=== PATIENT | female | born 1935 | race African-American/Black ===

== ENCOUNTER 2016-07-18 16:27 | Inpatient (IN) | payer MEDICARE, BC ==
--- NOTE | ~2016-07-18 | CT4 ---
[facility] A Service of [facility] RADIOLOGY TEXT RESULTS PATIENT: LALO TIJERINA LOCATION: C3A 330-01 : 35 UNIT #: [id number] AGE: [address]: Nolvia Ramirez MD SEX: F ORDER DR: [id number] [address] [address] [id number] MR#: [id number] Acc #: [id number] NAME: LALO TIJERINA : 1935 SEX: F STUDY DATE/TIME: 07/18/2016 17:14 UNIT: SED ROOM: STUDY DESCRIPTION: CT Abd and Pelv Wo Cont Attending Physician: Eleno Ramirez M.D. Ordering Physician: Eleno Ramirez M.D. Primary Care Physician: Jaylon Lewis M.D. MEDICAL IMAGING REPORT This report is preliminary unless electronic signature is present. EXAM CT abdomen and pelvis without IV contrast COMPARISON None INDICATIONS 81-year-old female with diffuse abdominal pain for 3 days. Recent colonoscopy. Patient also reports weakness, nausea and emesis since yesterday. FINDINGS Axial CT imaging of the abdomen and pelvis was performed without IV contrast. Lack of IV contrast limits evaluation of adenopathy, vasculature and viscera. This CT exam was performed with one or more of the following radiation dose reduction techniques: Automatic exposure control, adjustment of mA and/or kV according to patient size, and iterative reconstruction. Diffuse osteopenia. Degenerative changes at the pubic symphysis. Degenerative changes of both sacroiliac joints with multilevel degenerative facet disease of the lumbar spine. There has been prior laminectomy from L2-L4 with posterior spinal fusion rods and interlocking pedicle screws seen from L2-L5. No evidence of hardware complication. There is grade I anterolisthesis of L4 on L5, where there is marked disc height loss. There is also disc height loss at every level of the lumbar spine, including L5-S1. There is posterior disc-osteophyte complex at L3-L4 with small posterior disc protrusion at L5-S1. Sacral nerve stimulator device overlies the left gluteus musculature in the subcutaneous tissues. Associated lead terminates in the left pelvis. There is S-shaped scoliosis of the lumbar spine. There are diffuse arterial calcifications in the abdomen and pelvis involving a long segment of the celiac artery. The superior mesenteric artery originates from the STS. [facility] A Service of [facility] RADIOLOGY TEXT RESULTS PATIENT: LALO TIJERINA LOCATION: C3A 330-01 : 35 UNIT #: [id number] AGE: [address]: Nolvia Ramirez MD SEX: F ORDER DR: celiac artery and there is also calcification at the origin of the superior mesenteric artery. There are dense calcifications of the proximal renal arteries. There is ectasia of the juxtarenal/infrarenal abdominal aorta measuring up to 2.9 cm. There is no aneurysm of the abdominal aorta. In the lower chest, the descending thoracic aorta measures up to 3.7 cm, withour aneurysm. Calcified right hilar lymph nodes. Calcified granuloma in the right lower lobe. Mild centrilobular emphysema. There are multivessel coronary artery calcifications, with calcifications at the level of the aortic valve as well. The liver is unremarkable. The gallbladder is fluid distended, but otherwise unremarkable. Streak artifact from lumbar spinal fusion hardware limits evaluation of the abdomen. No acute abnormality of the pancreas is seen. Spleen and adrenal glands appear to be within normal limits. Arterial calcification noted near the left renal hilum. Exophytic cyst extending from the right kidney measuring up to 7 mm. There is questionable punctate nonobstructive calculus in the mid pole of the left kidney. There may be similar punctate calculus in the mid pole of the right kidney. No hydronephrosis or hydroureter. Urinary bladder is fluid distended but otherwise unremarkable. Peripheral, nonspecific, somewhat curvilinear calcification of the uterus, possibly reflecting arterial calcifications. No definite adnexal masses. Dense arterial calcifications in the pelvis extending into the proximal femoral arteries. No evidence of bowel obstruction. No pneumoperitoneum or free fluid. There are scattered colonic diverticula without evidence of acute diverticulitis. The appendix is normal. No adenopathy. IMPRESSION 1. No acute abnormality of the abdomen, pelvis or imaged lower chest. 2. Changes of posterior spinal fusion from L2-L5. There are multilevel degenerative disc changes of the lumbar spine including posterior disc protrusions, as described in the body of the report. 3. Grossly adequate position of sacral nerve stimulator without evidence of complication. 4. Diffuse calcification of the abdominal aorta and its branch vessels, as described in the body of the report. There is ectasia of the infrarenal abdominal aorta measuring up to 2.9 cm. 5. Emphysema. Multivessel coronary artery calcifications as well as calcifications at the level of the aortic valve. 6. Diverticulosis without evidence of acute diverticulitis. 7. Fluid distension of the gallbladder without CT findings of an acute cholecystitis. 8. Questionable punctate nonobstructive renal calculi. Dictated by... [facility]. [facility] A Service of [facility] RADIOLOGY TEXT RESULTS PATIENT: LALO TIJERINA LOCATION: A 330-01 : 35 UNIT #: [id number] AGE: [address]: Nolvia Ramirez MD SEX: F ORDER DR: Mariano Flor M.D. THIS IS AN ELECTRONICALLY VERIFIED REPORT Mariano Flor M.D. at 07/22/2016 9:37 AM LEO/lesley TD: 07/18/2016 21:52 JOB #: [id number] MEDICAL IMAGING REPORT Page 1 of 1
--- NOTE | ~2016-07-18 | CT71 ---
[facility] A Service of [facility] & [facility] RADIOLOGY TEXT RESULTS PATIENT: LALO TIJERINA LOCATION: C3A 330- : 35 UNIT #: [id number] AGE: [address]: Nolvia Ramirez MD SEX: F ORDER DR: [id number] [facility] [address] [place], [place] [address] [id number] I MR#: [id number] #: [id number] NAME: LALO TIJERINA : 1935 SEX: F STUDY DATE/TIME: 07/19/2016 0:37 UNIT: C3A PCU ROOM: 330 STUDY DESCRIPTION: CT Head Wo Contrast Attending Physician: Goldy Dinh M.D. Ordering Physician: Elinor Rodriguez M.D. Primary Care Physician: Jaylon Lewis M.D. MEDICAL IMAGING REPORT This report is preliminary unless electronic signature is present EXAM Noncontrast CT head. Date: 07/19/2016 HISTORY Admitted 07/18/2016 with urinary tract infection, weakness. Confusion for 1 day. Prior transit ischemic attack. Acute on chronic kidney disease. Central hypertension. Hyperlipidemia. Physician's order states acute renal insufficiency and urinary tract infection, nausea, vomiting and headache. COMPARISON Noncontrast CT head 03/14/2014. This CT exam was performed with one or more of the following radiation dose reduction techniques: automatic exposure control, adjustment of mA and/or kV according to patient size, and iterative reconstruction. . FINDINGS Moderate patchy ethmoid sinus mucosal thickening is present. Mastoid air cells are clear. Dense calcific atherosclerosis is demonstrated within the carotid siphons, to a lesser grade the bilateral vertebral arteries at the skull base. No acute intracranial hemorrhage, mass lesion, mass effect or midline shift is seen. There is no evidence of acute or evolving infarct. Moderate scattered hypodensities are seen throughout the deep white matter of the brain, favored to represent changes of chronic microvascular disease. Ventricular configuration is stable. Physiologic calcifications are demonstrated within the bilateral basal ganglia. Chronic-appearing lacunar infarcts are demonstrated within the esther. IMPRESSION [facility] A Service of [facility] & [facility] RADIOLOGY TEXT RESULTS PATIENT: LALO TIJERINA LOCATION: [facility] 330-01 : 35 UNIT #: [id number] AGE: [address]: Nolvia Ramirez MD SEX: F ORDER DR: 1. No acute intracranial findings. 2. Moderate chronic microvascular disease changes in the deep white matter with chronic-appearing lacunar infarcts in the esther. 3. Mild atrophy. 4. Ethmoid sinus disease. Dictated by... Sofía Villalobos M.D. THIS IS AN ELECTRONICALLY VERIFIED REPORT Sofía Villalobos M.D. at 07/20/2016 9:59 PM Kaylyn TD: 07/19/2016 06:58 JOB #: [id number] MEDICAL IMAGING REPORT Page 1 of 1 COPY
--- NOTE | ~2016-07-18 | EKG ---
PATIENT: LALO TIJERINA UNIT #: [id number] Ventricular Rate: 81 BPM Atrial Rate: 81 BPM P-R Interval: 190 ms QRS Duration: 90 ms Q-T Interval: 388 ms QTC Calculation(Bezet): 450 ms P [place]: 68 degrees Calculated R [place]: 29 degrees Calculated T [place]: 114 degrees Diagnosis Line: Normal sinus rhythm Diagnosis Line: T wave abnormality, consider anterolateral Diagnosis Line: ischemia Diagnosis Line: Abnormal ECG Diagnosis Line: When compared with ECG of 14-MAR-2014 21:07, Diagnosis Line: No significant change was found Diagnosis Line: Confirmed by NITHYA PATIÑO MD ([id number]) on Diagnosis Line: 07/19/2016 9:56:04 PM INTERPRETING : VITA
--- NOTE | ~2016-07-18 | DS ---
Unit #: [id number] #: [id number] Patient: LALO TIJERINA [id number] [address] [place], [place] [address] [id number] I MR#: [id number] NAME: ALLO TIJERINA ROOM: 330 Age: 81 Sex: F Admission Date: 07/18/2016 : 1935 Discharge Date: 07/19/2016 Attending Physician: Nolvia Ramirez M.D. Primary Care Physician: Jaylon Lewis M.D. DISCHARGE SUMMARY PRINCIPAL DIAGNOSES 1. Acute kidney injury on chronic kidney disease stage 3. Discharge creatinine 1.4. 2. Frontal headache, tension. 3. Nausea, vomiting, now resolved. 4. Urinary tract infection with pending urine culture. 5. 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 6. Prior history of stroke maintained on Aggrenox. 7. Small abdominal aortic aneurysm measuring 3.2 cm. 8. Hypertension. 9. Memory loss. CONSULTANTS None. PROCEDURES 1. CT scan of abdomen and pelvis without contrast without acute abnormality, descending thoracic aortic aneurysm measuring 3.2 cm, posterior spinal fusion at L2 through L5 with some multilevel degenerative disc changes, calcification of abdominal aorta and its branches noted, emphysema noted, diverticulosis noted. 2. CT of the head without contrast, on July 19, 2016, with no acute intracranial findings, moderate chronic microvascular disease changes noted, chronic lacunar infarcts in the esther, mild atrophy, ethmoid sinus disease noted. CLINICAL HISTORY AND HOSPITAL COURSE Ms. Tijerina is an 81-year-old -Citizen Of [place] female who presents to the emergency department with nausea, vomiting and headache. Please refer to H and P for further details. The patient underwent CT scan of the abdomen and pelvis which did not reveal any acute findings. She also had CT scan of the head, given her complaints of a headache, which was unremarkable for any acute findings. Her creatinine was found to be elevated at 1.9 up from a last known creatinine of 1.7 in 2017. The patient was subsequently admitted. Nephrotoxic medications were held. The patient was placed on IV fluids and this morning creatinine is now down to 1.4. Urinalysis does reveal trace protein in addition to 1+ leukocyte esterase and 10 to 25 WBCs. However, I will note there were occasional squamous cells on the UA. She was empirically started on antibiotics and I will continue her on Augmentin given also her complaints of headache with some ethmoid sinus disease. Unit #: [id number] #: [id number] Patient: LALO TIJERINA In regards to patient's complaints of headache again, CT scan was unremarkable. She has no neurologic abnormalities upon examination today and I suspect this headache is either tension and/or sinus related. Unfortunately, the patient must avoid all NSAIDs and will use Tramadol given she is getting minimal relief with Tylenol. I am currently awaiting evaluation per Physical Therapy but, assuming patient can function decently well at home, I think she can be discharged home. DISCHARGE CONDITION Stable. DISCHARGE STATUS Discharged to home. DISCHARGE MEDICATIONS 1. Augmentin 875 mg p.o. b.i.d. for seven days. 2. Flonase 0.05% nasal spray one spray per nostril daily. 3. Zyrtec 10 mg daily. 4. Norvasc 10 mg daily. 5. Pravastatin 40 mg at bedtime. 6. Hydralazine 50 mg t.i.d. 7. Singulair 10 mg daily. 8. Aggrenox one tablet p.o. b.i.d. 9. Tramadol 50 mg p.o. t.i.d. p.r.n. for pain, number given 10. DISCHARGE INSTRUCTIONS 1. The patient is instructed to follow a Heart Healthy diet. 2. She can increase her activity as tolerated. FOLLOWUP The patient is to follow up with Dr. Lewis in two weeks. Note: I have discontinued her lisinopril given blood pressure has been stable off medication and it would decrease renal function. The patient needs a followup BMP upon evaluation. Dictated by... Nolvia Ramirez M.D. BAYRON/alicia TD: 07/20/2016 07:26 JOB #: [id number] DISCHARGE SUMMARY Page 1 of 1 X Nolvia Ramirez MD DISCHARGE SUMMARY
--- NOTE | ~2016-07-18 | HP ---
Unit #: [id number] #: [id number] Patient: LALO TIJERINA [id number] [address] [place], [place] [address] [id number] MR#: [id number] NAME: LALO TIJERINA ROOM: 330 Age: 81 Sex: F Admission Date: 07/18/2016 : 1935 Attending Physician: Goldy Dinh M.D. Primary Care Physician: Jaylon Lewis M.D. HISTORY AND PHYSICAL CHIEF COMPLAINT Headache, nausea, vomiting, abdominal pain. HISTORY OF PRESENT ILLNESS This pleasant, 81-year-old female who is anticoagulated for a previous CVA or TIA with hypertension, GERD, was transferred from [facility] emergency department for acute on chronic kidney injury, nausea and vomiting. The patient is only a fair historian and we have very little in the way of records. She tells me that she was well until a day ago when she developed intractable nonbloody nausea, vomiting with left upper quadrant pain, dizziness with a frontal headache. No fever, sweats, chills. No diarrhea or urinary symptoms. She presented to the [facility] emergency department late this afternoon where she has remained mildly hypertensive. Labs showed acute on chronic kidney injury and some pyuria. She was bolused with IV fluids, given Zofran, morphine, IV Protonix and Rocephin. The patient continues to feel unwell. PAST MEDICAL HISTORY 1. Hyperlipidemia. 2. Essential hypertension. 3. GERD. 4. Back surgery. 5. Bilateral total knee replacements. 6. Eye surgery. 7. Shoulder surgery. SOCIAL HISTORY The patient lives alone. A remote history of tobacco use. The patient drinks occasional alcohol. FAMILY HISTORY Negative for heart disease or strokes. ALLERGIES No known drug allergies. HOME MEDICATIONS 1. Norvasc. 2. Anticoagulant of unknown name. 3. Pravachol. Unit #: [id number] #: [id number] Patient: LALO TIJERINA REVIEW OF SYSTEMS Notable for headache, nausea, vomiting, left upper quadrant pain, hyperlipidemia, hypertension, GERD, TIA versus CVA, above-mentioned surgeries. All other systems are reviewed and otherwise negative. PHYSICAL EXAMINATION GENERAL APPEARANCE: A pleasant, young-appearing, 81-year-old female who looks to be mildly uncomfortable. VITAL SIGNS: Temperature 98. Pulse 102. Respirations 18. Blood pressure 155/82. O2 saturation is 97% on room air. HEENT: Eyes: PERRLA. Extraocular muscles are intact. Pharynx is benign. NECK: Supple without adenopathy or thyromegaly. CHEST: Clear. CARDIAC: Normal S1, S2 with a soft systolic murmur heard throughout the precordium. ABDOMEN: Bowel sounds are present. The patient is most tender in the left upper quadrant and epigastric region without rebound. No hepatosplenomegaly or masses. EXTREMITIES: Without edema. Pedal pulses are diminished. NEUROLOGIC: The patient is awake, alert. She is oriented. Her cranial nerves are intact. She has equal strength throughout, is able to sit up with minimal assistance. DIAGNOSTIC STUDIES LABORATORY: Hematocrit 34.9, normal white count, platelet count. SMA-12: Glucose 124, BUN 45, creatinine 1.9 up from a BUN of 25, creatinine of 1.7 three years ago, chloride 113. Cardiac markers are negative. Urinalysis: 1+ leukocyte esterase with 10 to 25 white cells, 1+ bacteria. IMAGING: CT scan of the abdomen and pelvis shows a 3.2 cm abdominal aortic aneurysm, needs followup in six to 12 months, posterior spine fusion and DJD, atherosclerotic changes, COPD, diverticular disease, multivessel CAD, fluid distended gallbladder. The patient has a sacral nerve stimulator without evidence of complication. ASSESSMENT 1. Nausea, vomiting with epigastric and left upper quadrant tenderness, may have a UTI. 2. Headache on anticoagulation. 3. Acute on chronic kidney disease. 4. Essential hypertension. 5. Anticoagulated for prior TIA or CVA. Details are unknown. 6. Hyperlipidemia. PLAN 1. Check coags. 2. Obtain STAT head CT. 3. Antibiotics pending urine cultures. 4. IV fluids and supportive treatment. 5. Proton pump inhibitor for now, Zofran and check hemoccult. 6. Verify home medicines. 7. Recheck labs in the morning. 8. Obtain EKG. 9. The patient will need followup CT scan in six to 12 months given her small abdominal aortic aneurysm. Unit #: [id number] #: [id number] Patient: LALO TIJERINA Dictated by James Young/alicia TD: 07/19/2016 06:01 JOB #: [id number] HISTORY AND PHYSICAL Page 1 of 1 X Elinor Rodriguez MD HISTORY AND PHYSICAL
[~2016-07-18 16:27] MED LIST: CRESTOR; DOXYCYCLINE PO; HYDROCODON-ACE1 EACH; IBUPROFEN PO; NORVASC PO; PERCOCET10 PO; PRAVASTATIN SOD40 MG PO
[2016-07-18 16:49] LABS: BASOPHIL# 0.1 X10e3 (0-0.3); BASOPHIL% 1.1 % (0-2.5); EOSINOPHIL# 0.1 X10e3 (0-0.7); EOSINOPHIL% 1.2 % (0.0-7.0); HEMATOCRIT 34.9 % (35.0-45.0); HEMOGLOBIN 11.5 gm/dL (12.0-16.0); LYMPHOCYTE# 1.7 X10e3 (1.0-3.5); LYMPHOCYTE% 25.2 % (17.0-45.0); MEAN CELL VOLUME 95.8 FL (83-96); MEAN CORPUSCULAR HEMOGLOBIN 31.7 PG (28-34); MEAN CORPUSCULAR HGB CONC 33.1 g/dL (30-36); MEAN PLATELET VOLUME 6.7 FL (6.5-11.5); MONOCYTE# 0.6 X10e3 (0-1.0); MONOCYTE% 9.8 % (3.0-12.0); NEUTROPHIL# 4.1 X10e3 (1.5-7.1); NEUTROPHIL% 62.7 % (40-75); PLATELET COUNT 389 X10e3 (140-420); RED BLOOD COUNT 3.64 X10e (3.90-5.30); RED CELL DISTRIBUTION WIDTH 13.9 % (11.0-15.5); WHITE BLOOD COUNT 6.6 X10e3 (4.0-10.5)
[2016-07-18 16:50] LABS: DIFF IND NO
[2016-07-18 17:08] LABS: ALBUMIN SERUM 4.1 g/dL (3.5-5.0); ALKALINE PHOSPHATASE 75 U/L (32-92); ALT (SGPT) 11 U/L (10-40); AMYLASE 23 U/L (0-46); AST (SGOT) 19 U/L (10-42); BILIRUBIN, DIRECT <0.1 mg/dL (0.0-0.2); BILIRUBIN,INDIRECT 0.1 mg/dL (0.0-0.9); BILIRUBIN,TOTAL 0.2 mg/dL (0.2-2.0); BLOOD UREA NITROGEN 45 mg/dL (9-23); BUN/CREATININE RATIO 23.68; CALCIUM SERUM 8.7 mg/dL (8.4-10.2); CARBON DIOXIDE 22 mmol/L (22-31); CHLORIDE 113 mmol/L (100-111); CREATININE SERUM 1.9 mg/dL (0.6-1.4); GLOM FILT RATE Estimated 28.2 mL/min (>60); GLUCOSE FASTING 124 mg/dL (70-110); LIPASE 35 U/L (22-51); POTASSIUM 4.6 mmol/L (3.5-5.1); SODIUM 139 mmol/L (135-145)
[2016-07-18 18:12] LABS: URINE SOURCE CLEAN CATCH
[2016-07-18 18:15] LABS: URINE APPEARANCE CLEAR; URINE BILIRUBIN NEG (NEG); URINE BLOOD NEG (NEG); URINE COLOR YELLOW; URINE GLUCOSE NEG (NORM); URINE KETONE NEG (NEG); URINE LEUKOCYTE ESTERASE 1+ (NEG); URINE NITRATE NEG (NEG); URINE PROTEIN TRACE (NEG); URINE UROBILINOGEN 0.2 MG/DL (NORM)
[2016-07-18 18:25] LABS: MICRO INDICATED? YES
[2016-07-18 18:27] LABS: CULTURE INDICATED? YES; URINE BACTERIA 1+ (NEG); URINE MUCUS PRESENT; URINE RBC 0-2 /[HPF] (0-2); URINE SQUAMOUS EPITHELIAL CELL OCCAS /[HPF]; URINE TRANSITIONAL EPI CELLS FEW /[HPF]
[2016-07-18 21:09] LABS: POC - CKMB 2.3 ng/mL (0.0-7.9); POC - TROPONIN <0.05 ng/mL (<=0.05)
[2016-07-18] MEDS ORDERED: ZYRTEC10 M1 PO (23:47)
[2016-07-18] MEDS ORDERED: HYDRALAZINE HCL50 MG PO (23:48)
[2016-07-18] MEDS ORDERED: AGGRENOX1 CAP PO (23:48)
[2016-07-18] MEDS ORDERED: FLONASE (23:48)
[2016-07-18] MEDS ORDERED: SINGULAIR PO (23:48)
[2016-07-18] MEDS ORDERED: [UNRECOGNIZED DRUG - OTHER] PO (23:49)
[2016-07-18] MEDS ORDERED: ZESTORETIC 20-1 EAC2 PO (23:49)
[2016-07-19 00:14] LABS: PARTIAL THROMBOPLASTIN TIME 27.4 SECONDS (23.5-31.3); PROTHROMBIN TIME (PATIENT) 10.1 SECONDS (9.6-11.5)
[2016-07-19 06:23] LABS: HEMATOCRIT 30.4 % (35.0-45.0); HEMOGLOBIN 9.9 gm/dL (12.0-16.0); MEAN CELL VOLUME 95.9 FL (83-96); MEAN CORPUSCULAR HEMOGLOBIN 31.2 PG (28-34); MEAN CORPUSCULAR HGB CONC 32.5 g/dL (30-36); MEAN PLATELET VOLUME 6.7 FL (6.5-11.5); RED BLOOD COUNT 3.17 X10e (3.90-5.30); RED CELL DISTRIBUTION WIDTH 13.9 % (11.0-15.5)
[2016-07-19 06:34] LABS: PROTHROMBIN TIME (PATIENT) 10.2 SECONDS (9.6-11.5)
[2016-07-19 07:02] LABS: BUN/CREATININE RATIO 22.85; CALCIUM SERUM 8.8 mg/dL (8.4-10.2); CREATININE SERUM 1.4 mg/dL (0.6-1.4); GLOM FILT RATE Estimated 40.7 mL/min (>60); POTASSIUM 4.6 mmol/L (3.5-5.1)
[2016-07-19 07:32] LABS: %MB 4.6 % (0.0-4.0); MB 3.3 ng/ml
[2016-07-19] MEDS ORDERED: FLONASE 0.05% N16 GM (13:16)
[2016-07-19] MEDS ORDERED: AUGMENTIN PO (13:19)
[2016-07-19] MEDS ORDERED: TRAMADOL HCL50 M1 PO (13:19)
== END 2016-07-19 17:30 | disposition home health service (06) | DRG 683 ==
LOC: SED 16:27 → C3A PCU 22:10
PROVIDERS: Emergency Medicine; Family Medicine; Internal Medicine
DX: N17.9 Acute kidney failure, unspecified (principal); N39.0 Urinary tract infection, site not specified; E87.2 Acidosis; E78.5 Hyperlipidemia, unspecified; K21.9 Gastro-esophageal reflux disease without esophagitis; Z96.653 Presence of artificial knee joint, bilateral; Z79.01 Long term (current) use of anticoagulants; I12.9 Hypertensive chronic kidney disease with stage 1 through stage 4 chronic kidney disease, or unspecified chronic kidney disease; Z86.73 Personal history of transient ischemic attack (TIA), and cerebral infarction without residual deficits; N18.3 Chronic kidney disease, stage 3 (moderate); I71.4 Abdominal aortic aneurysm, without rupture; R41.3 Other amnesia; G44.209 Tension-type headache, unspecified, not intractable
CPT/HCPCS: 36415; 70450; 74176; 80048; 80076; 81003; 82150; 82550; 82553; 83690; 84484; 85025; 85027; 85610; 85730; 86850; 86900; 86901; 87086; 93005; 96361; 96374; 96375; 97167; 99285; C9113; G8987-GO; G8988-GO; G8989-GO; J0696; J2270; J2405